=== PATIENT | female | born 1985 ===

== ENCOUNTER 2017-07-27 11:47 | Emergency (ER) | payer OTHER ==
[2017-07-27 12:01] VITALS: O2SAT 100
[2017-07-27] MEDS ORDERED: Sodium Chloride 0.9% 1,000 ML IV STA ×2 (12:30→16:36)
--- NOTE | 2017-07-27 12:33 | ED PDOC ---
HPI: Female Pain Time Seen by Provider: 07/27/17 12:12 Chief Complaint (Nursing): Female Genitourinary Chief Complaint (Provider): Vaginal bleeding History Per: Patient History/Exam Limitations: no limitations Onset/Duration Of Symptoms: Days (Apr 2017) Additional Complaint(s): Vaginal bleeding in Apr. It stopped May and Jun. Started again in Jul. Has pelvic cramps across lower and lower back. No nausea, vomit, diarrhea, weakness , headaches, dizziness. No chest pain, dyspnea. No fever. No dysuria. Past Medical History Reviewed: Nursing Documentation, Vital Signs Vital Signs: Last Vital Signs Temp 98.1 F 07/27/17 11:59 Pulse 77 07/27/17 11:59 Resp 19 07/27/17 11:59 BP 143/95 H 07/27/17 11:59 Pulse Ox 100 07/27/17 11:59 - Medical History Other PMH: nephrotic syndrome; chronic dyspnea - Surgical History Surgical History: No Surg Hx - Family History Family History: States: Unknown Family Hx - Living Arrangements Living Arrangements: With Family - Social History Alcohol: None Drugs: Denies - Allergies Allergies/Adverse Reactions: Allergies Allergy/AdvReac Type Severity Reaction Status Date / Time No Known Allergies Allergy Verified 07/27/17 11:57 Review of Systems ROS Statement: Except As Marked, All Systems Reviewed And Found Negative Genitourinary Female: Positive for: Vaginal Bleeding, Pelvic Pain Physical Exam - Reviewed Nursing Documentation Reviewed: Yes Vital Signs Reviewed: Yes - Physical Exam Appears: Positive for: Non-toxic, No Acute Distress Head Exam: Positive for: ATRAUMATIC, NORMAL INSPECTION, NORMOCEPHALIC Skin: Positive for: Normal Color, Warm, DRY Eye Exam: Positive for: EOMI, Normal appearance, PERRL ENT: Positive for: Normal ENT Inspection Neck: Positive for: Normal, Painless ROM Cardiovascular/Chest: Positive for: Regular Rate, Rhythm Respiratory: Positive for: CNT, Normal Breath Sounds Gastrointestinal/Abdominal: Positive for: Bowel Sounds, Soft, Tenderness ( across lower pelvic) Pelvic Exam: Positive for: External Exam Normal, Blood (mild from cervcix). Negative for: Speculum Exam Normal, Discharge, Tender W/Cervical Motion Back: Positive for: Normal Inspection. Negative for: L CVA Tenderness, R CVA Tenderness Extremity: Positive for: Normal ROM. Negative for: Tenderness, Pedal Edema Neurologic/Psych: Positive for: Alert, Oriented - Laboratory Results Result Diagrams: 07/27/17 14:05 07/27/17 14:05 Interpretation Of Abn Labs: no acute - ECG O2 Sat by Pulse Oximetry: 100 Pulse Ox Interpretation: Normal - CT Scan/US US Other Rad Studies (CT/US): Read By Radiologist Other Rad Interpretation: no acute - Progress ED Course And Treament: 1641: [place] slightly dizzy. Will give IV fluids 1L and re-evaluate. 1728: Stable. AAOx3. Pain free. Tolerated PO. Disposition - Clinical Impression Clinical Impression: Vaginal bleeding - Patient ED Disposition Is Patient to be Admitted: No Counseled Patient/Family Regarding: Studies Performed, Diagnosis, Need For Followup - Disposition Referrals: [facility] [Outside] - 07/28/17 [facility] [Outside] - 07/29/17 Disposition: Routine/Home Disposition Time: 17:32 Condition: STABLE Additional Instructions: Return if not better in 3 days. Instructions: Dysfunctional Uterine Bleeding (ED) Forms: [employer] ([place]), [facility] ED School/Work Excuse
[2017-07-27 14:20] LABS: BASO % 0.9 % (0.0-2.0); EOS # 0.1 K/uL (0.0-0.7); EOS % 1.9 % (0.0-4.0); LYMPH # 2.2 K/uL (1.0-4.3); LYMPH % 45.9 % (20.0-40.0); MEAN CELL VOLUME 83.6 fl (81.0-99.0); MEAN CORPUSCULAR HEMOGLOBIN 26.5 pg (27.0-31.0); MEAN CORPUSCULAR HGB CONC 31.7 g/dL (33.0-37.0); MEAN PLATELET VOLUME 9.7 fl (7.2-11.7); MONO # 0.3 K/uL (0.0-0.8); MONO % 6.7 % (0.0-10.0); NEUT # 2.1 K/uL (1.8-7.0); NEUT % 44.6 % (50.0-75.0); NRBC % 0.1 % (0.0-0.0); RBC 4.54 Mil/uL (3.80-5.20); WHITE BLOOD COUNT 4.7 K/uL (4.8-10.8)
[2017-07-27 14:38] LABS: ALB/GLOB RATIO 1.3 (1.0-2.1); ALBUMIN 4.4 g/dL (3.5-5.0); ALT/SGPT 36 U/L (9-52); AST/SGOT 47 U/L (14-36); BLOOD UREA NITROGEN 15 mg/dl (7-17); CALCIUM 9.6 mg/dL (8.4-10.2); GFR AFRICAN-AMERICAN > 60; GFR NON-AFRICAN AMERICAN > 60
[2017-07-27 14:50] LABS: INR 0.9 (0.9-1.2); PROTHROMBIN TIME 10.4 Seconds (9.8-13.1)
--- NOTE | 2017-07-27 14:51 | US ---
HISTORY: vaginal bleeding COMPARISON: None available. TECHNIQUE: Transvaginal ultrasound examination of the pelvis was performed. FINDINGS: UTERUS: Measures 8.1 x 4.6 x 4.5 cm. Normal in size and appearance. No fibroid or other mass lesion seen. ENDOMETRIUM: Measures 7.1 mm in diameter. Unremarkable. CERVIX: No cervical abnormality identified. RIGHT OVARY: Measures 3.5 x 3.9 x 1.35 cm. No solid mass. Normal flow. There is right paraovarian cyst measures 1.1 x 0.9 x 0.93 centimeter. LEFT OVARY: Measures 4.2 x 2.1 x 2.6 cm. No solid mass. Normal flow. FREE FLUID: No significant free fluid noted. OTHER FINDINGS: None. IMPRESSION: Right para ovarian cyst measures 1.1 centimeter. Otherwise grossly unremarkable ultrasound examination of the uterus and ovaries.
[2017-07-27 18:01] VITALS: BP 126/87; PULSE 84; RESP 20; TEMP 98.4
== END 2017-07-27 18:00 | disposition home or self-care (01) ==
LOC: H.ER 11:47
DX: N93.9 Abnormal uterine and vaginal bleeding, unspecified (principal); N83.201 Unspecified ovarian cyst, right side
CPT/HCPCS: 76830; 80053; 81025; 84702; 85025; 85610; 85730; 86850; 86900; 96361; 96374; 99284; J1885; J7040